=== PATIENT | female | born 1975 | race African-American/Black ===

== ENCOUNTER → 2020-06-07 | Outpatient (CLI) | payer BC ==
[~2020-06-07] MED LIST: HYDR25TA PO; IBUP-1060 PO; L.AC1CAP6 PO; OLME20TA17 PO; SERT50TA PO
[2020-06-07 15:27] LABS: BASO # 0.1 x10^3/uL (0.0-0.2); BASO % 1 % (0-3); EOS # 0.1 x10^3/uL (0.0-0.7); EOS % 1 % (0-3); HEMATOCRIT 41.3 % (36.0-47.0); HEMOGLOBIN 14.2 g/dL (12.0-15.5); LYMPH # 2.4 x10^3/uL (1.0-4.8); LYMPH % 32 % (24-48); MEAN CORPUSCULAR HEMOGLOBIN 32 pg (25-35); MEAN CORPUSCULAR HGB CONC 34 g/dL (31-37); MEAN CORPUSCULAR VOLUME 93 fL (79-100); MONO # 0.6 x10^3/uL (0.0-1.1); MONO % 8 % (0-9); NEUT # 4.5 x10^3/uL (1.8-7.7); NEUT % 59 % (31-73); PLATELET COUNT 252 x10^3/uL (140-400); RED BLOOD COUNT 4.44 x10^6/uL (3.50-5.40); RED CELL DISTRIBUTION WIDTH 13.4 % (11.5-14.5); WHITE BLOOD COUNT 7.7 x10^3/uL (4.0-11.0)
[2020-06-07 15:29] LABS: BILIRUBIN,URINE NEGATIVE (NEG); CLARITY,URINE CLOUDY; COLOR,URINE YELLOW; NITRITE,URINE NEGATIVE (NEG); PROTEIN,URINE NEGATIVE (NEG-TRACE)
[2020-06-07 15:37] LABS: AMORPHOUS SEDIMENT,UR PRESENT /HPF; BACTERIA,URINE FEW /HPF (0-FEW); RBC,URINE 0 /HPF (0-2); SQUAMOUS EPITHELIAL CELL,UR MANY /LPF
[2020-06-07 15:40] LABS: ALBUMIN 3.5 g/dL (3.4-5.0); ALBUMIN/GLOBULIN RATIO 0.9 (1.0-1.7); CALCIUM 8.7 mg/dL (8.5-10.1); CREATININE 0.6 mg/dL (0.6-1.0); GFR 130.2; POTASSIUM 3.6 mmol/L (3.5-5.1); TOTAL BILIRUBIN 0.3 mg/dL (0.2-1.0); TOTAL PROTEIN 7.5 g/dL (6.4-8.2)
--- NOTE | 2020-06-07 15:43 | EKG ---
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
--- NOTE | 2020-06-07 15:58 | RAD ---
Two-view chest dated 06/07/2020. No comparison available. CLINICAL INDICATION: Preop for hysterectomy. FINDINGS: PA and lateral views obtained. Heart and mediastinal contours within normal limits. Lungs are clear. No consolidation or pleural effusion. No pneumothorax. IMPRESSION: No acute radiographic abnormality. Electronically signed by: Rylan Carter MD (06/07/2020 3:55 PM) SANTY
--- NOTE | 2020-06-11 08:50 | NUR ---
Faxed pretesting results to Dr Hale.
== END ==
LOC: SURGPAT 14:46
PROVIDERS: ATTEND Obstetrics & Gynecology
DX: Z01.818 Encounter for other preprocedural examination (principal); Z11.59 Encounter for screening for other viral diseases; I10 Essential (primary) hypertension
CPT/HCPCS: 71046; 80053; 81001; 85025; 93005; U0003

== ENCOUNTER 2020-06-13 06:59 | Inpatient (IN) | payer BC ==
[~2020-06-13] VITALS: Ht 163.8 cm; Wt 75.4 kg
[2020-06-13] VITALS (11 sets, daily range): BP systolic 109–126; BP diastolic 52–70
[2020-06-13] MEDS ORDERED: LIDOCAINE 1% PF 2 ML VIAL. ID PRN ×2 (07:00→11:30)
[2020-06-13] MEDS ORDERED: ONDANSETRON PF 4 MG/2 ML VIAL. IV PRN ×2 (07:00→11:30)
[2020-06-13] MEDS ORDERED: IV RINGERS,LACTATED 1000ML 1,000 ML IV SCH ×2 (07:00→11:22)
[2020-06-13] MEDS ORDERED: PROCHLORPERAZINE 10 MG/2 ML VIAL. IV PRN ×2 (07:00→11:30)
[2020-06-13] MEDS ORDERED: fentaNYL PF VIAL 100 MCG/2 ML VIAL IV PRN ×2 (07:00→11:30)
[2020-06-13] MEDS ORDERED: BUPIVACAINE-EPI 0.5%-1:200000 MPF 30 ML VIAL. ONE (07:44)
[2020-06-13] MEDS ORDERED: VASOPRESSIN 20 UNIT/ML VIAL. ONE (07:45)
[2020-06-13] MEDS ORDERED: GLYCOPYRROLATE 1 MG/5 ML VIAL. ONE (07:54)
[2020-06-13] MEDS ORDERED: fentaNYL PF VIAL 100 MCG/2 ML VIAL ONE ×6 (07:54→11:56)
[2020-06-13] MEDS ORDERED: ROCURONIUM 50 MG/5 ML VIAL. ONE ×2 (07:54→09:02)
[2020-06-13] MEDS ORDERED: NEOSTIGMINE METHYLSULFATE 5 MG/5 ML SYRINGE. ONE (07:54)
[2020-06-13] MEDS ORDERED: MIDAZOLAM HCL/PF 2 MG/2 ML VIAL. ONE (07:55)
[2020-06-13] MEDS ORDERED: ONDANSETRON PF 4 MG/2 ML VIAL. ONE (07:55)
[2020-06-13] MEDS ORDERED: LIDOCAINE 2% PF 5 ML VIAL. ONE (07:55)
[2020-06-13] MEDS ORDERED: KETOROLAC 30 MG/ML VIAL. ONE (07:55)
[2020-06-13] MEDS ORDERED: PROPOFOL 10 MG/ML (20ML) VIAL. IV ONE ×2 (07:55→11:28)
[2020-06-13] MEDS ORDERED: DEXAMETHASONE SOD PHOS 4 MG/ML VIAL ONE (07:55)
[2020-06-13] MEDS ORDERED: SCOPOLAMINE 1.5MG PATCH. TD ONE (08:00)
[2020-06-13] MEDS ORDERED: LOSARTAN POTASSIUM 50 MG TABLET. PO SCH (09:00)
[2020-06-13] MEDS ORDERED: hydrALAZINE 20 MG/ML VIAL. ONE (09:20)
[2020-06-13] MEDS ORDERED: ESMOLOL 100 MG/10 ML VIAL. IVP ONE (09:22)
[2020-06-13] MEDS ORDERED: SEVOFLURANE > 120 MINUTES. IH ONE (09:54)
[2020-06-13] MEDS ORDERED: HYDROmorphone 2 MG/ML VIAL ONE (11:23)
--- NOTE | 2020-06-13 11:25 | PDOC ---
BRIEF OPERATIVE NOTE Date: Jun 13, 2020 Pre-Op Diagnosis enlarged fibroid uterus 17cm with menorrhagia Post-Op Diagnosis same Procedure Performed AMBROSE Surgeon Dr. Tere Williamson Buffer Operator PATRICIA López Anesthesiologist Dr. Sneed Anesthesia Type: General Blood Loss 1100cc IV Fluid 2500cc crystalloid, 500cc albumin Urine Output 550cc clear Specimens Obtained cervix wth enlarged fibroid uterus Findings enlarged >17cm uterus, normal bilateral tubes and ovaries Complications none Operative Note [id number] TERE WILLIAMSON MD Jun 13, 2020 11:25
[2020-06-13] MEDS ORDERED: MAG HYDROX/ALUMINUM HYD/SIMETH 30 ML ORAL.SUSP PO PRN (11:30)
[2020-06-13] MEDS ORDERED: LACTULOSE 20 GM/30 ML SOLUTION. PO PRN (11:30)
[2020-06-13] MEDS ORDERED: NALOXONE 0.4 MG/ML VIAL. IV PRN (11:30)
[2020-06-13] MEDS ORDERED: 0.9 % SODIUM CHLORIDE 10 ML DISP.SYRIN. IV PRN (11:30)
[2020-06-13] MEDS ORDERED: HYDROmorphone 2 MG/ML VIAL IV PRN (11:30)
[2020-06-13] MEDS ORDERED: HYDROcodone/APAP 5/325MG 1 TAB TABLET PO PRN (11:30)
[2020-06-13] MEDS ORDERED: CALCIUM CARBONATE 500 MG TAB.CHEW PO PRN (11:30)
[2020-06-13] MEDS ORDERED: diphenhydrAMINE 50 MG/ML VIAL IV PRN (11:30)
[2020-06-13] MEDS: fentaNYL PF VIAL 100 MCG/2 ML VIAL IV PRN ×2 (11:59→12:09)
[2020-06-13 12:09] LABS: HEMATOCRIT 27.7 % (36.0-47.0); HEMOGLOBIN 9.2 g/dL (12.0-15.5); RED BLOOD COUNT 2.9 x10^6/uL (3.50-5.40); WHITE BLOOD COUNT 19.7 x10^3/uL (4.0-11.0)
--- NOTE | 2020-06-13 12:13 | OP ---
DATE OF SURGERY: 06/13/2020 PREOPERATIVE DIAGNOSES: This patient is a 44-year-old -[place] female with menorrhagia and an enlarged fibroid uterus, greater than 17 cm palpable almost at the umbilicus. POSTOPERATIVE DIAGNOSES: This patient is a 44-year-old -[place] female with menorrhagia and an enlarged fibroid uterus, greater than 17 cm palpable almost at the umbilicus. PROCEDURE: Total abdominal hysterectomy. SURGEON: Suhas Williamson MD PHOTOSTATIC COPY MAKER: PATRICIA López ANESTHESIA: General. ANESTHESIOLOGIST: Armin Sneed MD ESTIMATED BLOOD LOSS: 1100 mL. URINE OUTPUT: 550 mL clear via Rehman catheter. INTRAVENOUS FLUIDS: 2500 mL of crystalloid and 500 mL of albumin. SPECIMEN REMOVED: Cervix and an enlarged fibroid uterus. FINDINGS: Enlarged greater than 17 cm uterus, otherwise normal bilateral tubes and ovaries. COMPLICATIONS: None. DESCRIPTION OF PROCEDURE: This patient was taken to the operating room where general anesthesia was placed. The patient was placed in a dorsal supine position. A Rehman catheter had been inserted under sterile technique and she had already received 2 grams of Ancef. Upon my arrival, a timeout was performed. Once everyone agreed on the patient, the site, the procedure, the antibiotics, the procedure was initiated. A transverse Pfannenstiel skin incision was made 1-2 cm above the pubic bone, carried down to the underlying layer of the fascia sharply with the Bovie cautery. Bovie cautery was used in the subcuticular layer for hemostasis. The fascia was scored in the midline and extended sharply and bluntly bilaterally. Geena clamps x 2 were placed on the superior fascial edge and the fascia was dissected from the rectus muscles beneath sharply and bluntly. This was done inferiorly as well. Once all the bleeding had been secured in the subcutaneous and on the rectus muscles, the rectus muscles were and the peritoneum was digitally and bluntly entered. The peritoneum was taken down under direct visualization with Metzenbaum scissors and she was digitally and bluntly stretched. Initially, I put the O'Lucio-O'Vu retractor in. However, with the large uterus and it coming through, it basically filled the whole thing. I actually took the retractor out and did 3 moist laps packing away the bowel, put curved Peans at the cornua of the uterus and pulled it up and through the incision and we could see much better. So curved Peans were at the cornua. The tubes and ovaries were normal, so creating a window in the uteroovarian pedicle and placing curved Yash clamps x 2 in here and a straight Geena for back bleeding. It was cut. The first tie was a free tie. The second tie was a stick tie before and after this was done on both sides, finding the uteroovarian pedicle, making an opening, placing curved Heaneys x 2 and a straight Geena for backbleeding, cutting with curved Childers scissors, first stitch was a free tie and a second tie was a stick tie of 0 Vicryl. Once this was done, the round ligaments were tied off and the uterine vessels were skeletonized with the [place] pickups and the Metzenbaum scissors and curved Yash clamps x 2 were placed on the uterine vessels on the right side. They were doubly clamped and a straight Marielos was placed for back bleeding and it was cut and suture ligated x 2. This was done exactly the same on the left side, starting on the right then going to the left, double clamping the uterine vessels. A straight Marielos for backbleeding, cutting with curved Mayos and suture ligating x 2 with 0 Vicryl. Once this was done, there was significant back bleeding initially from the corners of the uterus and where the one did not go all the way down as this was a very enlarged fibroid uterus. So, most of the bleeding in this case was backbleeding until we got both ovarian pedicles and both uterine pedicles just even from where it get though placing the sutures. Before this was done, the bladder flap was created sharply with the Selmans and the Metzenbaum scissors and then using the moist lap to gently just push it down. Once it was down, staying inside that curved Yash, uterine pedicle staying inside of it and staying right on the cervix, two straight Heaneys were placed on the right side, double clamping and then using the knife to cut it and suture ligating x 2 with 0 Vicryl. This was done exactly the same on the left and a series of bites through the cardinal and broad ligaments down to the uterosacrals, 3 or 4 straight Heaneys making sure the bladder was down anteriorly hugging the uterus making sure the bowel was back just hugging the uterus and going down the cervix, staying right on that cervix. Once we were down, curved Heaneys were placed at the bottom over the uterosacrals and tagged. Once these were cut, tied and tagged and then making the cervix bulge placing another curved Yash to try to get in the vaginal cuff again making sure the bladder was down the whole way through this. Once we were in on one side, I went over and made sure we were down and clamp the uterosacrals and tagged the other side as well because I believe we got in on the right side. The left side, I went down and made sure the uterosacrals were clamped and cut and tagged and then the Rob's were used to go around posteriorly and anteriorly once we made sure that cervix was down placing long Geena's on the vaginal cuff. The cervix and uterus were delivered in total. It was very large and 0 Vicryl was then used to get the corners going from outside in and then through that uterosacral and tagging that cuff to the uterosacral ligament on both sides and tagging it. This was done at both corners and then interrupted, I believe 4 or 5 interrupted sutures were placed to close the vaginal cuff. Once the vaginal cuff was closed, copious irrigation did reveal hemostasis. The tubes and ovaries were normal. Along the way several times, I could feel the ureters and in fact at one point, we could even see one of them, as I was lifting up on the tube and ovary checking it underneath of it went deep in the pelvis, so we could palpate the rubber band-like feel of both ureters and see them in the pelvis along the way as well, although we did not take tubes and ovaries. They were below the tubes and ovaries. Once irrigation revealed hemostasis, the tags were clipped and it was looked at again and it was hemostatic. The 3 moist laps from the abdominal cavity were removed and packed away the bowel and soft count was done again. Initially, they had done a count when we amputated the cervix and then they repeated it again before I closed the fascia. Once everything was out, we reexamined the rectus muscles and the fascia and the subcutaneous and they were dry. I placed the malleable in and then closed with 0 Vicryl, the fascia from left to midline and then right to midline and tied them together. Again, we reexamined the subcutaneous. Bovie cautery was used to obtain hemostasis here. A 3-0 Vicryl was used to close the subcuticular fascia and then 4-0 Monocryl was used to close the skin and then Steri-Strips and Mastisol will be placed over that. Armin is currently closing the skin right now. The patient was stable through anesthesia. She is currently being awakened. SUHAS WILLIAMSON MD DR: VIVIANE/quita JOB#: [id number] / [id number]
[2020-06-13] MEDS ORDERED: MORPHINE SULFATE 2 MG/ML VIAL. ONE (12:37)
[2020-06-13] MEDS: MORPHINE SULFATE 2 MG/ML VIAL. IV PRN ×7 (12:42→22:07)
--- NOTE | 2020-06-13 13:15 | NUR ---
Pt to room 329 per bed from PACU s/p AMBROSE. Pt alert and oriented but drowsy from pain meds. Assessment completed and pt oriented to room. Frequent VS started and call light given to pt. Dressing to abdomen D/I with an ice pack in place. Will continue to monitor and support.
[2020-06-13] MEDS: ONDANSETRON PF 4 MG/2 ML VIAL. IV PRN ×2 (16:45→23:09)
[2020-06-13] MEDS: oxyCODONE/APAP 5/325 1 TAB TABLET PO PRN ×3 (19:05→23:09)
[2020-06-13] MEDS: hydrOXYzine 25 MG TABLET PO PRN (20:18)
[2020-06-13] MEDS: SIMETHICONE 80 MG TAB.CHEW PO PRN (23:02)
[2020-06-13] MEDS: ZOLPIDEM 5 MG TABLET. PO PRN (23:02)
[2020-06-14] MEDS: hydrOXYzine 25 MG TABLET PO PRN (02:42)
[2020-06-14] MEDS: MORPHINE SULFATE 2 MG/ML VIAL. IV PRN (02:42)
[2020-06-14] MEDS: IBUPROFEN 400 MG TABLET. PO PRN ×5 (02:57→21:14)
[2020-06-14] MEDS: oxyCODONE/APAP 5/325 1 TAB TABLET PO PRN ×5 (02:58→21:14)
[2020-06-14] MEDS: diphenhydrAMINE HCL 25 MG CAPSULE PO PRN ×3 (04:01→19:31)
[2020-06-14 05:00] VITALS: BP 125/55
[2020-06-14 06:48] LABS: CALCIUM 7.6 mg/dL (8.5-10.1); CREATININE 0.7 mg/dL (0.6-1.0); POTASSIUM 3.8 mmol/L (3.5-5.1)
[2020-06-14 07:30] VITALS: BP 132/69
[2020-06-14] MEDS: SERTRALINE 50 MG TABLET. PO SCH (07:59)
[2020-06-14] MEDS: SIMETHICONE 80 MG TAB.CHEW PO PRN ×2 (07:59→12:54)
--- NOTE | 2020-06-14 08:53 | PDOC ---
SURGICAL PROGRESS NOTE DATE: 06/14/20 TIME: 08:38 Subjective Sitting up in chair doing ok. Scant VB. Tolerating regular diet without n/v. Goldsmith out this am and already voided. Vital Signs Vital Signs Date Time Temp Pulse Resp B/P (MAP) Pulse Ox O2 Delivery O2 Flow Rate FiO2 06/14/20 08:00 18 Room Air 06/14/20 05:00 99.4 100 125/55 (78) 98 99.4 06/13/20 14:48 10.0 I&O Intake and Output 06/14/20 07:00 Intake Total 3944 ml Output Total 4200 ml Balance -256 ml Intake Oral 710 ml IV Total 2750 ml Other 484 ml Output Urine Total 3100 ml Estimated Blood Loss 1100 ml PATIENT HAS A GOLDSMITH: No General: Alert, Oriented X3, Cooperative, mild distress HEENT: Atraumatic Heart: Regular rate Abdomen: Soft, Other (incision c/d/i with steri strips) Extremities: No clubbing, No cyanosis, No edema Skin: No rashes, No breakdown, No significant lesion Neuro: Normal speech Psych/Mental Status: Mental status NL, Mood NL Labs Laboratory Tests Test 06/13/20 07:28 06/13/20 11:52 06/14/20 05:55 Bedside Urine HCG, Qualitative Hcg negative (Negative) White Blood Count 19.7 x10^3/uL (4.0-11.0) Red Blood Count 2.90 x10^6/uL (3.50-5.40) Hemoglobin 9.2 g/dL (12.0-15.5) Hematocrit 27.7 % (36.0-47.0) 22.6 % (36.0-47.0) Mean Corpuscular Volume 96 fL (79-100) Mean Corpuscular Hemoglobin 32 pg (25-35) Mean Corpuscular Hemoglobin Concent 33 g/dL (31-37) Red Cell Distribution Width 14.0 % (11.5-14.5) Platelet Count 196 x10^3/uL (140-400) Sodium Level 143 mmol/L (136-145) Potassium Level 3.8 mmol/L (3.5-5.1) Chloride Level 108 mmol/L (98-107) Carbon Dioxide Level 23 mmol/L (21-32) Anion Gap 12 (6-14) Blood Urea Nitrogen 4 mg/dL (7-20) Creatinine 0.7 mg/dL (0.6-1.0) Estimated GFR (Cockcroft-Gault) 109.0 Glucose Level 115 mg/dL (70-99) Calcium Level 7.6 mg/dL (8.5-10.1) Laboratory Tests Test 06/13/20 11:52 06/14/20 05:55 White Blood Count 19.7 x10^3/uL (4.0-11.0) Red Blood Count 2.90 x10^6/uL (3.50-5.40) Hemoglobin 9.2 g/dL (12.0-15.5) Hematocrit 27.7 % (36.0-47.0) 22.6 % (36.0-47.0) Mean Corpuscular Volume 96 fL (79-100) Mean Corpuscular Hemoglobin 32 pg (25-35) Mean Corpuscular Hemoglobin Concent 33 g/dL (31-37) Red Cell Distribution Width 14.0 % (11.5-14.5) Platelet Count 196 x10^3/uL (140-400) Sodium Level 143 mmol/L (136-145) Potassium Level 3.8 mmol/L (3.5-5.1) Chloride Level 108 mmol/L (98-107) Carbon Dioxide Level 23 mmol/L (21-32) Anion Gap 12 (6-14) Blood Urea Nitrogen 4 mg/dL (7-20) Creatinine 0.7 mg/dL (0.6-1.0) Estimated GFR (Cockcroft-Gault) 109.0 Glucose Level 115 mg/dL (70-99) Calcium Level 7.6 mg/dL (8.5-10.1) I have reviewed the following labs, vitals, nursing Cardiovascular: HTN Heme/Onc: Anemia NOS Problem List enlarged fibroid uterus with menorrhagia Assessment/Plan POD#1 s/p AMBROSE for enlarged fibroid uterus acute blood loss with anemia will recheck cbc in am advance diet, ambulate today Justicifation of Admission Dx: Justifications for Admission: Justification of Admission Dx: Yes SUHAS WILLIAMSON MD Jun 14, 2020 08:53
[2020-06-14] MEDS: FERROUS SULFATE 325 MG TABLET. PO SCH ×2 (12:54→17:01)
[2020-06-14 14:30] VITALS: BP 137/69
[2020-06-14 17:00] VITALS: BP 146/68
[2020-06-14] MEDS: MAGNESIUM HYDROXIDE 2,400 MG/30 ML ORAL.SUSP. PO PRN (17:10)
[2020-06-14] MEDS: ZOLPIDEM 5 MG TABLET. PO PRN (21:13)
[2020-06-14 21:35] VITALS: BP 127/44
[2020-06-15] MEDS: diphenhydrAMINE HCL 25 MG CAPSULE PO PRN (00:57)
[2020-06-15] MEDS: oxyCODONE/APAP 5/325 1 TAB TABLET PO PRN ×2 (00:57→04:27)
[2020-06-15 01:11] VITALS: BP 143/64
[2020-06-15] MEDS: IBUPROFEN 400 MG TABLET. PO PRN (04:26)
[2020-06-15] MEDS: hydrOXYzine 25 MG TABLET PO PRN (04:26)
[2020-06-15 04:42] VITALS: BP 148/82
[2020-06-15] MEDS ORDERED: BISACODYL 10 MG SUPP.RECT. PR PRN ×2 (07:45→08:00)
[2020-06-15] MEDS ORDERED: ONDANSETRON ODT 4 MG TAB.RAPDIS. PO PRN ×2 (07:45→08:00)
[2020-06-15] MEDS: FERROUS SULFATE 325 MG TABLET. PO SCH (07:56)
[2020-06-15] MEDS: SERTRALINE 50 MG TABLET. PO SCH (07:56)
[2020-06-15] MEDS: MAGNESIUM HYDROXIDE 2,400 MG/30 ML ORAL.SUSP. PO PRN (07:57)
[2020-06-15 08:21] LABS: BASO # 0.1 x10^3/uL (0.0-0.2); BASO % 1 % (0-3); EOS # 0.2 x10^3/uL (0.0-0.7); EOS % 2 % (0-3); HEMATOCRIT 24.6 % (36.0-47.0); HEMOGLOBIN 8.3 g/dL (12.0-15.5); LYMPH # 2.2 x10^3/uL (1.0-4.8); LYMPH % 22 % (24-48); MEAN CORPUSCULAR HEMOGLOBIN 32 pg (25-35); MEAN CORPUSCULAR HGB CONC 34 g/dL (31-37); MEAN CORPUSCULAR VOLUME 96 fL (79-100); MONO # 0.6 x10^3/uL (0.0-1.1); MONO % 6 % (0-9); NEUT % 70 % (31-73); PLATELET COUNT 209 x10^3/uL (140-400); RED BLOOD COUNT 2.57 x10^6/uL (3.50-5.40); RED CELL DISTRIBUTION WIDTH 13.9 % (11.5-14.5)
[2020-06-15 10:45] VITALS: BP 155/92
--- NOTE | 2020-06-15 12:58 | PDOC ---
SURGICAL PROGRESS NOTE DATE: 06/15/20 TIME: 12:24 Subjective Doing well. Tolerating PO, just wants zofran. Taking off scope patch bc thinks that is what is making her dizzy. Voiding without catheter. Scant VB. Wants to go home. Given the option to stay and wants to go home and will be there to help Vital Signs Vital Signs Date Time Temp Pulse Resp B/P (MAP) Pulse Ox O2 Delivery O2 Flow Rate FiO2 06/15/20 04:42 98.2 77 20 148/82 (104) 100 Room Air 98.2 06/15/20 04:27 10.0 I&O Intake and Output 06/15/20 07:00 Output Total 200 ml Balance -200 ml Output Urine Total 200 ml # Voids 1 General: Alert, Oriented X3, Cooperative, No acute distress HEENT: Atraumatic Heart: Regular rate Abdomen: Soft, No tenderness, Other (incision c/d/i) Extremities: No clubbing, No cyanosis, No edema Skin: No rashes, No breakdown, No significant lesion Neuro: Normal speech Psych/Mental Status: Mental status NL, Mood NL Labs Laboratory Tests Test 06/14/20 05:55 06/15/20 07:35 Hematocrit 22.6 % (36.0-47.0) 24.6 % (36.0-47.0) Sodium Level 143 mmol/L (136-145) Potassium Level 3.8 mmol/L (3.5-5.1) Chloride Level 108 mmol/L (98-107) Carbon Dioxide Level 23 mmol/L (21-32) Anion Gap 12 (6-14) Blood Urea Nitrogen 4 mg/dL (7-20) Creatinine 0.7 mg/dL (0.6-1.0) Estimated GFR (Cockcroft-Gault) 109.0 Glucose Level 115 mg/dL (70-99) Calcium Level 7.6 mg/dL (8.5-10.1) White Blood Count 10.0 x10^3/uL (4.0-11.0) Red Blood Count 2.57 x10^6/uL (3.50-5.40) Hemoglobin 8.3 g/dL (12.0-15.5) Mean Corpuscular Volume 96 fL (79-100) Mean Corpuscular Hemoglobin 32 pg (25-35) Mean Corpuscular Hemoglobin Concent 34 g/dL (31-37) Red Cell Distribution Width 13.9 % (11.5-14.5) Platelet Count 209 x10^3/uL (140-400) Neutrophils (%) (Auto) 70 % (31-73) Lymphocytes (%) (Auto) 22 % (24-48) Monocytes (%) (Auto) 6 % (0-9) Eosinophils (%) (Auto) 2 % (0-3) Basophils (%) (Auto) 1 % (0-3) Neutrophils # (Auto) 7.0 x10^3/uL (1.8-7.7) Lymphocytes # (Auto) 2.2 x10^3/uL (1.0-4.8) Monocytes # (Auto) 0.6 x10^3/uL (0.0-1.1) Eosinophils # (Auto) 0.2 x10^3/uL (0.0-0.7) Basophils # (Auto) 0.1 x10^3/uL (0.0-0.2) Laboratory Tests Test 06/15/20 07:35 White Blood Count 10.0 x10^3/uL (4.0-11.0) Red Blood Count 2.57 x10^6/uL (3.50-5.40) Hemoglobin 8.3 g/dL (12.0-15.5) Hematocrit 24.6 % (36.0-47.0) Mean Corpuscular Volume 96 fL (79-100) Mean Corpuscular Hemoglobin 32 pg (25-35) Mean Corpuscular Hemoglobin Concent 34 g/dL (31-37) Red Cell Distribution Width 13.9 % (11.5-14.5) Platelet Count 209 x10^3/uL (140-400) Neutrophils (%) (Auto) 70 % (31-73) Lymphocytes (%) (Auto) 22 % (24-48) Monocytes (%) (Auto) 6 % (0-9) Eosinophils (%) (Auto) 2 % (0-3) Basophils (%) (Auto) 1 % (0-3) Neutrophils # (Auto) 7.0 x10^3/uL (1.8-7.7) Lymphocytes # (Auto) 2.2 x10^3/uL (1.0-4.8) Monocytes # (Auto) 0.6 x10^3/uL (0.0-1.1) Eosinophils # (Auto) 0.2 x10^3/uL (0.0-0.7) Basophils # (Auto) 0.1 x10^3/uL (0.0-0.2) I have reviewed the following orthostatic this am stable 151/71 85 and 99% room air lying 155/92 89 sitting 163/65 92 standing crit up 2 points today so definitely stable WBC down from 19 in RR to 10 this am all bloodwork and labs look good! Cardiovascular: HTN Heme/Onc: Anemia NOS Problem List enlarged fibroid uterus with menorrhagia Assessment/Plan POD#2 s/p AMBROSE Anemia from surgery Routine PO care blood count stablilized , WBC down and orthostatics stable will do iron bid with food already has pain pills filled at home ok for OTC ibuprofen NO driving on narcotics or for 2 weeks keep scheduled follow up with me in a week call or return sooner for any other questions or concerns not limited to but including pain unrelieved with pain meds, increased or unexplained vag bleeding or t>100.4 Justicifation of Admission Dx: Justifications for Admission: Justification of Admission Dx: Yes SUHAS WILLIAMSON MD Jun 15, 2020 12:58
--- NOTE | 2020-06-15 13:00 | PDOC3 ---
Discharge Summary Visit Information Date of Admission: Jun 13, 2020 Date of Discharge: Jun 15, 2020 Final Diagnosis enlarged fibroid uterus, menorrhagia, anemia Brief Hospital Course Allergies Allergies Coded Allergies Type Severity Reaction Last Updated Verified codeine Allergy Intermediate Itching 06/14/20 Yes latex Allergy Intermediate Rash 06/14/20 Yes Vital Signs Vital Signs Date Time Temp Pulse Resp B/P (MAP) Pulse Ox O2 Delivery O2 Flow Rate FiO2 06/15/20 04:42 98.2 77 20 148/82 (104) 100 Room Air 98.2 06/15/20 04:27 10.0 Lab Results Laboratory Tests Test 06/14/20 05:55 06/15/20 07:35 Hematocrit 22.6 % (36.0-47.0) 24.6 % (36.0-47.0) Sodium Level 143 mmol/L (136-145) Potassium Level 3.8 mmol/L (3.5-5.1) Chloride Level 108 mmol/L (98-107) Carbon Dioxide Level 23 mmol/L (21-32) Anion Gap 12 (6-14) Blood Urea Nitrogen 4 mg/dL (7-20) Creatinine 0.7 mg/dL (0.6-1.0) Estimated GFR (Cockcroft-Gault) 109.0 Glucose Level 115 mg/dL (70-99) Calcium Level 7.6 mg/dL (8.5-10.1) White Blood Count 10.0 x10^3/uL (4.0-11.0) Red Blood Count 2.57 x10^6/uL (3.50-5.40) Hemoglobin 8.3 g/dL (12.0-15.5) Mean Corpuscular Volume 96 fL (79-100) Mean Corpuscular Hemoglobin 32 pg (25-35) Mean Corpuscular Hemoglobin Concent 34 g/dL (31-37) Red Cell Distribution Width 13.9 % (11.5-14.5) Platelet Count 209 x10^3/uL (140-400) Neutrophils (%) (Auto) 70 % (31-73) Lymphocytes (%) (Auto) 22 % (24-48) Monocytes (%) (Auto) 6 % (0-9) Eosinophils (%) (Auto) 2 % (0-3) Basophils (%) (Auto) 1 % (0-3) Neutrophils # (Auto) 7.0 x10^3/uL (1.8-7.7) Lymphocytes # (Auto) 2.2 x10^3/uL (1.0-4.8) Monocytes # (Auto) 0.6 x10^3/uL (0.0-1.1) Eosinophils # (Auto) 0.2 x10^3/uL (0.0-0.7) Basophils # (Auto) 0.1 x10^3/uL (0.0-0.2) Laboratory Tests Test 06/15/20 07:35 White Blood Count 10.0 x10^3/uL (4.0-11.0) Red Blood Count 2.57 x10^6/uL (3.50-5.40) Hemoglobin 8.3 g/dL (12.0-15.5) Hematocrit 24.6 % (36.0-47.0) Mean Corpuscular Volume 96 fL (79-100) Mean Corpuscular Hemoglobin 32 pg (25-35) Mean Corpuscular Hemoglobin Concent 34 g/dL (31-37) Red Cell Distribution Width 13.9 % (11.5-14.5) Platelet Count 209 x10^3/uL (140-400) Neutrophils (%) (Auto) 70 % (31-73) Lymphocytes (%) (Auto) 22 % (24-48) Monocytes (%) (Auto) 6 % (0-9) Eosinophils (%) (Auto) 2 % (0-3) Basophils (%) (Auto) 1 % (0-3) Neutrophils # (Auto) 7.0 x10^3/uL (1.8-7.7) Lymphocytes # (Auto) 2.2 x10^3/uL (1.0-4.8) Monocytes # (Auto) 0.6 x10^3/uL (0.0-1.1) Eosinophils # (Auto) 0.2 x10^3/uL (0.0-0.7) Basophils # (Auto) 0.1 x10^3/uL (0.0-0.2) Brief Hospital Course Ms. Jay is a 44 old female who presented with enlarged fibroid uterus and anemia. She had a AMBROSE on . She experienced anemia postoperatively but has done well and is very stable desiring to go home. She is AFVSS, wbc is down from 19 to 10, HCT is up 2 points this am from yesterday. She is voiding without catheter and tolerating regular diet. Assessment Assessment POD#2 s/p AMBROSE Anemia from surgery Routine PO care blood count stablilized , WBC down and orthostatics stable will do iron bid with food already has pain pills filled at home ok for OTC ibuprofen NO driving on narcotics or for 2 weeks keep scheduled follow up with me in a week call or return sooner for any other questions or concerns not limited to but including pain unrelieved with pain meds, increased or unexplained vag bleeding or t>100.4 Discharge Information Condition at Discharge: Stable Follow Up: Weeks Disposition/Orders: D/C to Home Scheduled L.acidoph & Ajay Woodwardlactis (Probiotic) 1 Each Capsule, 1 CAP PO DAILY for supplement for 10 Days, #10 Ref 0 (Reported) Entered as Reported by: CAROLYN BARNES on 06/07/201456 Last Taken: Unknown Dose on 06/12/20 Last Action: HELD on 06/13/20820 by SUHAS WILLIAMSON Olmesartan Medoxomil (Benicar) 20 Mg Tablet, 1 TAB PO DAILY for HTN for 30 Days, #30 Ref 0 (Reported) Entered as Reported by: CAROLYN BARNES on 06/07/201455 Last Taken: Unknown Dose on 06/11/20 Last Action: Converted on 06/13/20820 by SUHAS WILLIAMSON Sertraline Hcl (Zoloft) 50 Mg Tablet, 1 TAB PO DAILY for mental health, #30 Ref 2 (Reported) Entered as Reported by: CAROLYN BARNES on 06/07/20 144 Last Taken: Unknown Dose on 06/12/20 Last Action: Continued on 06/13/20819 by SUHAS WILLIAMSON Scheduled PRN Hydroxyzine Hcl (Hydroxyzine Hcl) 25 Mg Tablet, 1 TAB PO PRN PRN for ANXIETY / AGITATION, #30 (Reported) Entered as Reported by: CAROLYN BARNES on 06/07/201456 Last Taken: Unknown Dose on 06/07/20 Last Action: Continued on 06/13/20820 by SUHAS WILLIAMSON Ibuprofen (Ibuprofen) 800 Mg Tablet, 800 MG PO PRN Q6HRS PRN for INFLAMMATION, (Reported) Entered as Reported by: CAROLYN BARNES on 06/07/20 1457 Last Taken: Unknown Dose on 06/05/20 Last Action: Converted on 06/13/20820 by SUHAS WILLIAMSON Patient Instructions Patient Instructions POD#2 s/p AMBROSE Anemia from surgery Routine PO care blood count stablilized , WBC down and orthostatics stable will do iron bid with food already has pain pills filled at home ok for OTC ibuprofen NO driving on narcotics or for 2 weeks keep scheduled follow up with me in a week call or return sooner for any other questions or concerns not limited to but including pain unrelieved with pain meds, increased or unexplained vag bleeding or t>100.4 Justicifation of Admission Dx: Justifications for Admission: Justification of Admission Dx: Yes SUHAS WILLIAMSON MD Jun 15, 2020 13:00
--- NOTE | 2020-06-17 16:06 | PATHOLOGY ---
[facility] Accession Number: [id number] . 01 Material submitted: . uterus - CERVIX, UTERUS . 02 Diagnosis: Uterus, total abdominal hysterectomy: - Leiomyomas, uterine corpus, subserosal/intramural/submucosal, multiple, the largest measuring 4.5 cm in greatest dimension, producing enlargement and nodular distortion of uterine corpus. - Mild chronic cervicitis with focal squamous metaplasia. - Nabothian cysts, cervix. - Secretory endometrium. (JPM:jenn; 06/17/2020) [facility] [place] 06/17/2020 1458 Local . 02 Comment: There is no evidence of malignancy. (JPM:jenn; 06/17/2020) . 02 Electronically signed: . Venkata Holliday MD, Pathologist NPI- [id number] . 01 Gross description: . The specimen is received in formalin, labeled "TubbsWilliams, Gina, uterus cervix" and consists of an enlarged multinodular and distorted uterus with attached cervix weighing 639 g and measuring 17.4 x 8.8 x 10.0 cm. The serosa is cam-brown smooth shiny. The slitlike 2.0 cm cervical os is surrounded by glistening pink-cam ectocervical mucosa. Nabothian cysts are present. It is bivalved to reveal a smooth corrugated pink-cam endocervical canal measuring 4.5 cm in length. The endometrial cavity is distorted and roughly triangular measuring 7.5 cm in length and 3.9 cm in width. The distortion is due to numerous subserosal, intramural, and submucosal nodules which measure up to 4.5 cm. The endometrium is pink-cam measuring 0.1 cm. The myometrium is pink-cam measuring up to 5.8 cm. The nodules show homogeneous white whorled cut surfaces. [employer] Worker sections are submitted as follows: . A1: Anterior cervix A2: Posterior cervix A3: Anterior endomyometrium A4: Posterior endomyometrium A5-A6: Anterior nodules A7-A8: Posterior nodules (SDY; 06/14/2020) SYU/SYU 06/14/2020 1651 Local . 02 Pathologist provided ICD-10: D25.0, D25.1, D25.2, N72, N88.8 . 02 CPT . 961953 Specimen Comment: A courtesy copy of this report has been sent to [phone], [phone] Specimen Comment: [id number] Specimen Comment: Report sent to / Performed at: 01 [facility] [address] [facility] [address], [place] [id number] MD Maxwell Spencer MD Phone: [phone] Performed at: 02 [facility] [address] [place], [place] [id number] MD Venkata Holliday MD Phone: [phone]
== END 2020-06-15 14:07 | disposition home or self-care (01) | DRG 742 ==
LOC: OPSVCIP 06:59 → INTOOBSV 06:59 → EDSTATUS 08:30 → OBSVTOIN 11:27 → 3 NORTH 11:48
PROVIDERS: ADMIT Obstetrics & Gynecology; ATTEND Obstetrics & Gynecology
PROC: 0UT90ZZ Resection of Uterus, Open Approach (ICD-10-PCS; principal; 2020-06-13 08:30)
DX: D25.9 Leiomyoma of uterus, unspecified (principal); D62 Acute posthemorrhagic anemia; N92.0 Excessive and frequent menstruation with regular cycle; Z88.8 Allergy status to other drugs, medicaments and biological substances; Z91.040 Latex allergy status
CPT/HCPCS: 36415; 80048; 81025; 85014; 85025; 85027; 86850; 86900; 86901; A7015; G0378; G0379; J0360; J0690; J0780; J1100; J1170; J1885; J2250; J2270; J2405; J2704; J2710; J3010; J3480; J3490; J7030; J7120; A4461; Q0163

== ENCOUNTER 2021-08-24 04:01 | Emergency (ER) | payer BC ==
[~2021-08-24] VITALS: Ht 162.6 cm; Wt 72.2 kg
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
[2021-08-24] MEDS ORDERED: HYDROcodone/APAP 5/325MG 1 TAB TABLET PO ONE (05:00)
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
[2021-08-24] MEDS ORDERED: KETOROLAC 15 MG/ML VIAL. IM ONE (09:00)
[2021-08-24 10:47] VITALS: BP 174/72
[2021-08-25 18:13] LABS: GC PROBE Negative (Negative)
== END 2021-08-24 11:45 | disposition home or self-care (01) ==
LOC: ER 04:01
DX: T76.21XA Adult sexual abuse, suspected, initial encounter (principal); R51.9 Headache, unspecified; M25.562 Pain in left knee; M25.572 Pain in left ankle and joints of left foot; M53.3 Sacrococcygeal disorders, not elsewhere classified; Z88.5 Allergy status to narcotic agent; Z91.040 Latex allergy status; Y08.89XA Assault by other specified means, initial encounter; Y93.89 Activity, other specified; Y92.89 Other specified places as the place of occurrence of the external cause; Y99.8 Other external cause status
CPT/HCPCS: 70110; 72220; 73562; 73610; 87491; 87591; 96372; 99285; J1885; Q0111